=== PATIENT | female | born 1965 | race Caucasian/White ===

== ENCOUNTER → 2017-03-01 09:14 | Outpatient (CLI) | payer OTHER ==
[2016-05-03 07:16] VITALS: BMI 46.3
--- NOTE | 2016-12-27 07:00 | NUR ---
REPORT RECIEVED ASSUMED CARE. PATIENT IN BED WITH IV INTACT. NO COMPLAINTS. CALL LIGHT WITHIN REACH.
--- NOTE | 2016-12-27 10:15 | NUR ---
REPORT CALLED TO [facility]. PATIENT DRESSED AND READY TO GO. AWAITING VAN FOR TRANSPORTATION. CALL LIGHT WITHIN REACH. BED ALARM ON.
[~2017-03-01 09:14] MED LIST: BENADRYL50 MG PO; CELEXA20 MG PO; FELDENE20 MG PO; FIORICET-COD 51 EACH PO; HYDROCHLOROTH12.5 M1 PO; HYDROCODON-ACE1 EAC7 PO; OMEPRAZOLE40 MG PO; PAXIL20 MG PO; RESTORIL15 MG PO; TOPAMAX50 MG PO; WELLBUTRIN SR150 MG PO; ZANAFLEX4 MG PO; ZANTAC150 MG PO
[2017-03-01 10:06] LABS: ALBUMIN 3.6 g/dL (3.4-5.0); BILIRUBIN - DIRECT 0.08 mg/dL (0.00-0.30); BILIRUBIN - INDIRECT 0.24 mg/dL (0.00-1.00); BILIRUBIN - TOTAL 0.32 mg/dL (0.2-1.3); PROTEIN - SERUM 7.4 g/dL (6.4-8.2)
== END | disposition home or self-care (01) ==
LOC: D.LAB 02-19 09:30 → D.US 02-19 09:30
PROVIDERS: Internal Medicine Gastroenterology
DX: K76.0 Fatty (change of) liver, not elsewhere classified (principal)

== ENCOUNTER → 2017-08-23 08:48 | Outpatient (CLI) | payer OTHER ==
[2016-05-03 07:16] VITALS: BMI 46.3
[2017-08-23 09:54] LABS: ALBUMIN 3.5 g/dL (3.4-5.0); BILIRUBIN - DIRECT 0.07 mg/dL (0.00-0.30); BILIRUBIN - INDIRECT 0.23 mg/dL (0.00-1.00); BILIRUBIN - TOTAL 0.3 mg/dL (0.2-1.3)
== END | disposition home or self-care (01) ==
LOC: D.US 08:48
PROVIDERS: Internal Medicine Gastroenterology
DX: K76.0 Fatty (change of) liver, not elsewhere classified (principal)

== ENCOUNTER → 2017-09-09 07:31 | Outpatient (CLI) | payer OTHER ==
[2016-05-03 07:16] VITALS: BMI 46.3
== END | disposition home or self-care (01) ==
LOC: D.US 07:31
DX: R19.09 Other intra-abdominal and pelvic swelling, mass and lump (principal)

== ENCOUNTER → 2018-03-04 09:31 | Outpatient (CLI) | payer OTHER ==
[2016-05-03 07:16] VITALS: BMI 46.3
[2018-03-04 11:45] LABS: ALBUMIN 3.4 g/dL (3.4-5.0); BILIRUBIN - DIRECT 0.09 mg/dL (0.00-0.30); BILIRUBIN - INDIRECT 0.27 mg/dL (0.00-1.00); BILIRUBIN - TOTAL 0.36 mg/dL (0.2-1.3); PROTEIN - SERUM 7.5 g/dL (6.4-8.2)
== END | disposition home or self-care (01) ==
LOC: D.US 02-21 08:00
PROVIDERS: Internal Medicine Gastroenterology
DX: K76.0 Fatty (change of) liver, not elsewhere classified (principal)

== ENCOUNTER → 2018-08-19 08:18 | Outpatient (CLI) | payer OTHER ==
[2016-05-03 07:16] VITALS: BMI 46.3
[2018-08-19 09:43] LABS: ALBUMIN 3.2 g/dL (3.4-5.0); BILIRUBIN - DIRECT 0.1 mg/dL (0.00-0.30); BILIRUBIN - INDIRECT 0.27 mg/dL (0.00-1.00); BILIRUBIN - TOTAL 0.37 mg/dL (0.2-1.3); PROTEIN - SERUM 7.3 g/dL (6.4-8.2)
== END | disposition home or self-care (01) ==
LOC: D.US 08:18
PROVIDERS: Internal Medicine Gastroenterology
DX: K76.0 Fatty (change of) liver, not elsewhere classified (principal)

== ENCOUNTER → 2019-02-20 08:40 | Outpatient (CLI) | payer MEDICAID ==
[2016-05-03 07:16] VITALS: BMI 46.3
[2019-02-20 10:04] LABS: ALBUMIN 3.6 g/dL (3.4-5.0); BILIRUBIN - DIRECT 0.07 mg/dL (0.00-0.30); BILIRUBIN - INDIRECT 0.18 mg/dL (0.00-1.00); BILIRUBIN - TOTAL 0.25 mg/dL (0.2-1.3); PROTEIN - SERUM 7.3 g/dL (6.4-8.2)
== END | disposition home or self-care (01) ==
LOC: D.US 02-17 08:30 → D.LAB 02-17 09:30 → D.US 02-19 09:00 → D.LAB 02-19 09:30 → D.US 08:40
PROVIDERS: ATTEND Internal Medicine Gastroenterology
DX: K76.0 Fatty (change of) liver, not elsewhere classified (principal)

== ENCOUNTER → 2019-05-19 08:10 | Outpatient (CLI) | payer MEDICAID ==
[2016-05-03 07:16] VITALS: BMI 46.3
== END | disposition home or self-care (01) ==
LOC: D.NM 08:10
PROVIDERS: ATTEND Internal Medicine Gastroenterology
DX: K21.9 Gastro-esophageal reflux disease without esophagitis (principal); K59.00 Constipation, unspecified

== ENCOUNTER → 2019-08-24 08:07 | Outpatient (CLI) | payer MEDICAID ==
[2016-05-03 07:16] VITALS: BMI 46.3
[2019-08-24 09:05] LABS: ALBUMIN 3.5 g/dL (3.4-5.0); BILIRUBIN - DIRECT 0.15 mg/dL (0.00-0.30); BILIRUBIN - INDIRECT 0.31 mg/dL (0.00-1.00); BILIRUBIN - TOTAL 0.46 mg/dL (0.2-1.3); PROTEIN - SERUM 7.3 g/dL (6.4-8.2)
== END | disposition home or self-care (01) ==
LOC: D.LAB 08:07 → D.US 09:30
PROVIDERS: ATTEND Internal Medicine Gastroenterology
DX: K76.0 Fatty (change of) liver, not elsewhere classified (principal)